=== PATIENT | female | born 1990 | race Caucasian/White ===

== ENCOUNTER 2019-10-23 06:20 | Day surgery (SDC) | payer MEDICAID ==
[~2019-10-23] VITALS: Ht 162.6 cm; Wt 65.0 kg
[2019-10-23] MEDS ORDERED: SODIUM CHLORIDE 0.9% 1,000 ML IV ONE ×2 (07:28→10:44)
[2019-10-23 07:30] VITALS: BP 110/71
[2019-10-23 08:15] LABS: CLARITY URINE CLEAR (CLEAR); COLOR URINE YELLOW (YELLOW); KETONES URINE NEGATIVE (NEGATIVE); LEUKOCYTE ESTERASE URINE NEGATIVE (NEGATIVE); NITRITE URINE NEGATIVE (NEGATIVE); OCCULT BLOOD URINE NEGATIVE (NEGATIVE); PH URINE 7.5 (4.5-8.0); PROTEIN URINE NEGATIVE (NEGATIVE); UROBILINOGEN URINE 0.2 E.U./dL (0.2-1.0)
[2019-10-23 08:20] LABS: BASOPHILS % 0.9 % (0.0-2.0); EOSINOPHILS % 0.3 % (0.0-5.0); HEMATOCRIT. 39.8 % (36.0-48.0); HEMOGLOBIN. 13.2 g/dL (12.0-16.0); MEAN CORPUSCULAR HEMOGLOBIN 25.7 pg (28.0-32.0); MEAN CORPUSCULAR VOLUME 77.8 fL (81.0-99.0); MEAN PLATELET VOLUME 9.3 fl (7.4-10.4); MONOCYTES % 4.2 % (2.0-8.0); NEUTROPHILS % 72.6 % (40.0-76.0); PLATELET 270 x1000/uL (130-400); RED BLOOD CELL COUNT 5.12 mill/uL (4.2-5.4); RED CELL DISTRIBUTION WIDTH 13.6 % (11.6-14.6)
[2019-10-23 08:21] LABS: CHLORIDE 108 mEq/L (98-107)
[2019-10-23 08:45] LABS: B-HCG QUANTITATIVE 22486 mIU/mL (<3)
[2019-10-23] MEDS ORDERED: NEOSTIGMINE METHYLSULFATE 1MG/ML 10 ML VIAL ONE (10:10)
[2019-10-23] MEDS ORDERED: FENTANYL CITRATE/PF 50MCG/ML 2ML VIAL ONE (10:10)
[2019-10-23] MEDS ORDERED: GLYCOPYRROLATE 0.2 MG/ML 2ML VIAL ONE (10:11)
[2019-10-23] MEDS ORDERED: SODIUM CHLORIDE 0.9% 10ML VIAL ONE (10:11)
[2019-10-23] MEDS ORDERED: LIDOCAINE HCL/PF 1% 10 MG/ML 5ML VIAL ONE (10:11)
[2019-10-23] MEDS ORDERED: MIDAZOLAM HCL 2 MG/2 ML VIAL ONE (10:11)
[2019-10-23] MEDS ORDERED: SUCCINYLCHOLINE CHLORIDE 200MG/10ML IV ONE (10:11)
[2019-10-23] MEDS ORDERED: PROPOFOL 200MG/20ML VIAL IV ONE (10:11)
[2019-10-23] MEDS ORDERED: ROCURONIUM BROMIDE 10MG/ML VIAL 5ML IV ONE (10:11)
[2019-10-23] MEDS ORDERED: CEFAZOLIN SODIUM 1000MG/VIAL ONE (10:11)
[2019-10-23] MEDS ORDERED: ONDANSETRON HCL 4MG/2ML INJ ONE (10:11)
[2019-10-23] MEDS ORDERED: METOCLOPRAMIDE HCL 10MG/2ML VIAL ONE (10:11)
[2019-10-23] MEDS ORDERED: METH PO (10:42)
[2019-10-23] MEDS ORDERED: IBUP-2029 MT (10:42)
[2019-10-23] MEDS ORDERED: MISOPROSTOL 200MCG TABLET PO ONE (10:45)
[2019-10-23] MEDS ORDERED: HYDROMORPHONE HCL/PF 2MG/ML CPJ IV PRN (10:45)
[2019-10-23] MEDS ORDERED: RHO(D) IMMUNE GLOBULIN 300 MCG/SYR IM ONE (10:45)
[2019-10-23] MEDS ORDERED: MEPERIDINE HCL/PF 25MG/ML CPJ IV PRN (10:45)
[2019-10-23] MEDS ORDERED: KETOROLAC 60MG/2ML VIAL IM ONE (10:45)
[2019-10-23] MEDS ORDERED: MORPHINE SULFATE 2 MG/ML CPJ (NOT FOR IM USE) IV PRN (10:45)
[2019-10-23] MEDS ORDERED: ONDANSETRON HCL 4MG/2ML INJ IV PRN ×2 (10:45)
[2019-10-23] MEDS ORDERED: DEXT 5%/0.45% NACL KCL 20MEQ/L 1,000 ML IV SCH (15:00)
== END 2019-10-23 13:30 | disposition home or self-care (01) ==
LOC: ER 06:20 → OR 09:40 → CANRESERV 11:58 → ENRESERV 11:58 → OR 13:30 → CANBEDREQ 14:21
PROVIDERS: ATTEND Specialist
DX: O03.9 Complete or unspecified spontaneous abortion without complication (principal); O02.0 Blighted ovum and nonhydatidiform mole; N93.9 Abnormal uterine and vaginal bleeding, unspecified; N83.202 Unspecified ovarian cyst, left side; O26.891 Other specified pregnancy related conditions, first trimester; Z3A.08 8 weeks gestation of pregnancy; Z79.899 Other long term (current) drug therapy
CPT/HCPCS: 36415; 59812; 76801; 76817; 80053; 81003; 84702; 85025; 86870; 86886; 86901; 88305; 90384; 93005; 96360; 96372; 99285; J0330; J0690; J2250; J2405; J2704; J2765; J3010; J3490; J7030; J2710

== ENCOUNTER 2020-12-06 07:58 | Observation (INO) | payer MEDICAID ==
[~2020-12-06] VITALS: Ht 157.5 cm; Wt 72.6 kg
[~2020-12-06 07:58] MED LIST: IBUP-2029 MT; METH PO
[2020-12-06] MEDS ORDERED: PREN1TAB23 PO (08:35)
[2020-12-06] MEDS ORDERED: RHO(D) IMMUNE GLOBULIN 300 MCG/SYR IM ONE (08:45)
== END 2020-12-06 09:40 | disposition home or self-care (01) ==
LOC: 8 EST LDRP 07:58
PROVIDERS: ADMIT Specialist; ATTEND Specialist
DX: Z34.93 Encounter for supervision of normal pregnancy, unspecified, third trimester (principal); Z3A.30 30 weeks gestation of pregnancy
CPT/HCPCS: 36415; 59025; 86886; 90384; 96372; G0378

== ENCOUNTER → 2021-02-13 | Outpatient (CLI) | payer MEDICAID ==
[~2021-02-13] MED LIST changes: +IBUP-2030 MT; +PREN1TAB23 PO
== END | disposition home or self-care (01) ==
LOC: LAB 13:30
PROVIDERS: ATTEND Specialist
DX: Z01.812 Encounter for preprocedural laboratory examination (principal); Z20.822 Contact with and (suspected) exposure to COVID-19
CPT/HCPCS: 87426